=== PATIENT | female | born 1990 | race Caucasian/White ===

== ENCOUNTER 2017-08-07 10:59 | Inpatient (IN) | payer BC ==
[2017-08-07] MEDS ORDERED: Ondansetron 4 MG/2 ML SDV IV PRN (12:26)
[2017-08-07] MEDS ORDERED: Sodium Chloride 0.9% 10 ML Syringe FLUSH PRN (12:26)
[2017-08-07] MEDS ORDERED: Calcium Carbonate 500 MG Tab.Chew PO PRN (12:26)
[2017-08-07] MEDS ORDERED: fentaNYL 100 MCG/2 ML SDV IVPUSH PRN (12:26)
[2017-08-07] MEDS ORDERED: Lactated Ringers 1,000 ML IV ONE (12:29)
--- NOTE | 2017-08-07 14:52 | PCM.LDHP ---
L&D History of Present Illness - General Date of Service: 08/07/17 Admit Problem/Dx: Patient Status Order with Admit Dx/Problem 08/07/17 11:46 Admission Status [Patient Status] [ADT] Routine 08/07/17 12:26 Patient Status [ADT] Routine Admission Diagnosis/Problem Admission Diagnosis/Problem Labor without complication Source of Information: Patient History Limitations: Reports: No Limitations - Related Data Allergies/Adverse Reactions: Allergies Allergy/AdvReac Type Severity Reaction Status Date / Time No Known Allergies Allergy Verified 08/07/17 11:45 Past Medical History : 1 Para: 0 Other OB/BYN History: VÍCTOR-08/09/2017 H&P Review of Systems - Review of Systems: Review Of Systems: See Below General: Reports: No Symptoms HEENT: Reports: No Symptoms Pulmonary: Reports: No Symptoms Cardiovascular: Reports: No Symptoms Gastrointestinal: Reports: No Symptoms Genitourinary: Reports: No Symptoms Musculoskeletal: Reports: No Symptoms Skin: Reports: No Symptoms Psychiatric: Reports: No Symptoms Neurological: Reports: No Symptoms Hematologic/Lymphatic: Reports: No Symptoms Immunologic: Reports: No Symptoms L&D Exam - Exam Exam: See Below - Vital Signs Weight: 98.883 kg - Samuel Score Samuel Score Cervix Position: Anterior Samuel Score Consistency: Soft Samuel Score Effacement: >80% Samuel Score Dilation: 3-4 cm Samuel Score 's Station: -2 Samuel Score Total: 10 - Exam General: Alert, Oriented HEENT: PERRLA, Conjunctiva Clear, EACs Clear, EOMI, Hearing Intact, Mucosa Moist & [place], Nares Patent, Normal Nasal Septum, Posterior Pharynx Clear, TMs Clear Neck: Supple, Trachea Midline Lungs: Clear to Auscultation, Normal Respiratory Effort Cardiovascular: Regular Rate, Regular Rhythm GI/Abdominal Exam: Normal Bowel Sounds, Soft, Non-Tender, No Organomegaly, No Distention, No Abnormal Bruit, No Mass, Pelvis Stable Rectal Exam: Normal Exam, Normal Rectal Tone Genitourinary: Normal external exam, Normal bimanual exam, Normal speculum exam Back Exam: Normal Inspection, Full Range of Motion Extremities: Normal Inspection, Normal Range of Motion, Non-Tender, No Pedal Edema, Normal Capillary Refill Skin: Warm, Dry, Intact Neurological: Cranial Nerves Intact, Reflexes Equal Bilateral Psychiatric: Alert, Normal Affect, Normal Mood - Patient Data Lab Results Last 24 hrs: Laboratory Results - last 24 hr 08/07/17 08/07/17 08/07/17 Range/Units 11:31 12:34 14:00 WBC 13.8 H (4.5-11.0) K/uL RBC 3.97 (3.30-5.50) M/uL Hgb 12.5 (12.0-15.0) g/dL Hct 37.4 (36.0-48.0) % MCV 94 (80-98) fL MCH 32 H (27-31) pg MCHC 33 (32-36) % Plt Count 158 (150-400) K/uL Urine Color Yellow Urine Appearance Clear Urine pH 8.0 (4.5-8.0) Ur Specific [place] 1.015 (1.008-1.030) Urine Protein Negative (NEGATIVE) mg/dL Urine Glucose (UA) Normal (NEGATIVE) mg/dL Urine Ketones Negative (NEGATIVE) mg/dL Urine Occult Blood Negative (NEGATIVE) Urine Nitrite Negative (NEGATIVE) Urine Bilirubin Negative (NEGATIVE) Urine Urobilinogen Normal (NORMAL) mg/dL Ur Leukocyte Esterase Negative (NEGATIVE) Urine RBC Not seen (0-5) Urine WBC 0-5 (0-5) Ur Epithelial Cells Rare Amorphous Sediment Not seen Urine Bacteria Not seen Urine Mucus Not seen Urine Opiates Screen Negative (NEGATIVE) Ur Oxycodone Screen Negative (NEGATIVE) Urine Methadone Screen Negative (NEGATIVE) Ur Propoxyphene Screen Negative (NEGATIVE) Ur Barbiturates Screen Negative (NEGATIVE) Ur Tricyclics Screen Negative (NEGATIVE) Ur Phencyclidine Scrn Negative (NEGATIVE) Ur Amphetamine Screen Negative (NEGATIVE) U Methamphetamines Scrn Negative (NEGATIVE) Urine MDMA Screen Negative (NEGATIVE) U Benzodiazepines Scrn Negative (NEGATIVE) U Cocaine Metab Screen Negative (NEGATIVE) U Marijuana (THC) Screen Negative (NEGATIVE) Result Diagrams: 08/07/17 12:34 - Problem List (1) SNOMED Code(s): 90819511 ICD Code: Z34.90 - ENCNTR FOR SUPRVSN OF NORMAL , UNSP, UNSP TRIMESTER Status: Acute Current Visit: Yes Qualifiers: Weeks of gestation: 39 weeks Qualified Code(s): Z3A.39 - 39 weeks gestation of (2) Active labor at term SNOMED Code(s): 67331182 ICD Code: SJV1036 - Status: Acute Current Visit: Yes Problem List Initiated/Reviewed/Updated: Yes Orders Last 24hrs: Active Orders 24 hr Category Date Time Status Admission Status [Patient Status] [ADT] Routine ADT 08/07/17 11:46 Active Patient Status [ADT] Routine ADT 08/07/17 12:26 Active Communication Order [RC] ASDIRECTED Care 08/07/17 12:26 Active Heart Tones [RC] PER UNIT ROUTINE Care 08/07/17 12:26 Active Local Anesthetic Infusion Pump [RC] ASDIRECTED Care 08/07/17 12:29 Active Notify Provider Vital Signs [RC] PRN Care 08/07/17 12:26 Active Notify Provider [RC] PRN Care 08/07/17 12:26 Active OB Check [OM.PC] Click to Edit Care 08/07/17 11:10 Ordered PCEA Epidural [RC] ASDIRECTED Care 08/07/17 12:29 Active Up ad Kristin [RC] ASDIRECTED Care 08/07/17 12:26 Active Vital Signs [RC] PER UNIT ROUTINE Care 08/07/17 12:26 Active Regular Diet [DIET] Diet 08/07/17 Lunch Active Calcium Carbonate [Tums] Med 08/07/17 12:26 Active 1,000 mg PO Q2H PRN Ondansetron [Zofran] Med 08/07/17 12:26 Active 4 mg IV Q4H PRN Sodium Chloride 0.9% [Saline Flush] Med 08/07/17 12:26 Active 10 ml FLUSH ASDIRECTED PRN fentaNYL [Sublimaze] Med 08/07/17 12:26 Active 100 mcg IVPUSH Q1H PRN Epidural Catheter Management [OM.PC] Routine Oth 08/07/17 12:29 Ordered Saline Lock Insert [OM.PC] Routine Oth 08/07/17 12:26 Ordered Resuscitation Status Routine Resus Stat 08/07/17 12:26 Ordered Medication Orders Calcium Carbonate/Glycine (Tums) 1,000 mg PO Q2H PRN PRN Reason: Indigestion Fentanyl (Sublimaze) 100 mcg IVPUSH Q1H PRN PRN Reason: Pain (moderate 4-6) Ondansetron HCl (Zofran) 4 mg IV Q4H PRN PRN Reason: Nausea/Vomiting Sodium Chloride (Saline Flush) 10 ml FLUSH ASDIRECTED PRN PRN Reason: Keep Vein Open Assessment/Plan Comment:: 08/07/2017 27 yo presents at 39 5/7 gestational weeks in active labor SVE-3-4/75/-2 Contractions regular FHTs category one Plan- Admit for active labor Monitor contractions Monitor FHTs IV saline lock Pain management per patient request Labs as needed Plan and anticipate a vaginal delivery
--- NOTE | 2017-08-07 14:59 | PCM.PNLD ---
Labor Progress Note - VS & Meds Active Medications: Current Medications Calcium Carbonate/Glycine (Tums) 1,000 mg PO Q2H PRN PRN Reason: Indigestion Fentanyl (Sublimaze) 100 mcg IVPUSH Q1H PRN PRN Reason: Pain (moderate 4-6) Ondansetron HCl (Zofran) 4 mg IV Q4H PRN PRN Reason: Nausea/Vomiting Sodium Chloride (Saline Flush) 10 ml FLUSH ASDIRECTED PRN PRN Reason: Keep Vein Open Discontinued Medications Lactated Ringer's (Ringers, Lactated) 1,000 mls @ 999 mls/hr IV .BOLUS ONE Stop: 08/07/17 13:29 Last Admin: 08/07/17 14:19 Dose: 999 mls/hr - Uterine Contractions Contraction Intensity: Moderate to Strong - Monitoring Heart Rate (FHR) Variability: Moderate (6-25 bmp) - Vaginal Exam Dilation (cm): 5 Effacement (Percent): 100 Station: -1 Cervical Position: Anterior - Labor Progress (Free Text) Labor Progress: Patient progressing in labor SVE-5/100/-1 Bulgy bag of mohamud Contractions regular FHTs category one Plan- Continue to monitor labor Epidural as patient desires Continue to monitor FHTs Plan and anticipate a vaginal delivery
[2017-08-07] MEDS ORDERED: fentaNYL 100 MCG/2 ML SDV ONE (15:23)
[2017-08-07] MEDS ORDERED: Ropivacaine 100 ML ONE (15:24)
[2017-08-07] MEDS ORDERED: ePHEDrine 50 MG/ML SDV ONE (15:30)
--- NOTE | 2017-08-07 20:02 | ANES ---
DATE OF SERVICE: 08/07/2017 PROCEDURE NOTE INDICATIONS: This 27-year-old lady is in labor. She is dilated to approximately to 5 at this time and they have asked that a labor epidural be placed. I discussed the risks and benefits of the procedure with the patient. She has understanding of these and has signed an informed consent. TECHNIQUE: The patient was placed in a sitting position on the edge of the bed. Her back was prepped with Betadine x3. A 2 mm skin wheal of 1% Xylocaine was injected at approximately L3-L4 and another 2 to 3 mL into the deeper tissue. A 17-gauge Tuohy needle was placed in the epidural space at this level using a loss of resistance technique. I was unable to aspirate blood, fluid, or air from the epidural needle, and proceeded to give her a bolus of 6 mL which included 5 mL of 1.5% Xylocaine with epinephrine and 2 mL of preservative-free fentanyl 100 mcg for a total of 7 mL. An epidural catheter was then threaded 3 to 4 cm into the epidural space and the needle was removed. The catheter was brought up over her right shoulder. She was placed on a continuous infusion of 0.2% ropivacaine at 12 mL per hour. This will be titrated p.r.n. pain. All of this was reviewed with the nurse in attendance. The patient tolerated the procedure well. Currently, her vital signs are stable. Her color is pink. She is alert, oriented, and shows no signs of complications from the procedure. They will contact the Anesthesia Services if further help is needed. NAME OF PROCEDURE: Insertion of labor epidural. Arun Knapp CRNA /[id number]
--- NOTE | 2017-08-07 20:53 | PCM.PNLD ---
Labor Progress Note - VS & Meds Vital Signs: Last Vital Signs Temp 36.9 C 08/07/17 19:00 Pulse 79 08/07/17 19:00 Resp 16 08/07/17 19:00 BP 129/77 08/07/17 11:30 Pulse Ox 93 L 08/07/17 19:00 Active Medications: Current Medications Calcium Carbonate/Glycine (Tums) 1,000 mg PO Q2H PRN PRN Reason: Indigestion Fentanyl (Sublimaze) 100 mcg IVPUSH Q1H PRN PRN Reason: Pain (moderate 4-6) Ondansetron HCl (Zofran) 4 mg IV Q4H PRN PRN Reason: Nausea/Vomiting Sodium Chloride (Saline Flush) 10 ml FLUSH ASDIRECTED PRN PRN Reason: Keep Vein Open Discontinued Medications Ephedrine Sulfate (Ephedrine Sulfate) Confirm Administered Dose 50 mg .ROUTE .STK-MED ONE Stop: 08/07/17 15:31 Fentanyl (Sublimaze) Confirm Administered Dose 100 mcg .ROUTE .STK-MED ONE Stop: 08/07/17 15:24 Lactated Ringer's (Ringers, Lactated) 1,000 mls @ 999 mls/hr IV .BOLUS ONE Stop: 08/07/17 13:29 Last Admin: 08/07/17 14:19 Dose: 999 mls/hr Ropivacaine (Naropin 0.2%) Confirm Administered Dose 100 mls @ as directed .ROUTE .STK-MED ONE Stop: 08/07/17 15:25 Oxytocin/Sodium Chloride (Pitocin In Ns 20 Units/1,000 Ml) 20 unit in 1,000 mls @ 2,997 mls/hr IV ONETIME ONE; 999 MUNITS/MIN PRN Reason: Protocol Stop: 08/07/17 15:47 Oxytocin/Sodium Chloride (Pitocin In Ns 20 Units/1,000 Ml) Confirm Administered Dose 20 unit in 1,000 mls @ as directed .ROUTE .STK-MED ONE Stop: 08/07/17 15:32 - Uterine Contractions Uterine Monitoring Mode: External [place] Contraction Frequency (min): 1.5-3 Contraction Duration (sec): 70-80 Contraction Intensity: Moderate Uterine Resting Tone: Soft - Monitoring Monitor Mode: External Ultrasound Heart Rate (FHR) Variability: Moderate (6-25 bmp) Accelerations: Present, 15x15 Strip Review: Category I - Vaginal Exam Dilation (cm): RIM Effacement (Percent): 100 Station: -1 Cervical Position: Anterior Sterile Vaginal Exam Performed By: Sonal Avendaño - Labor Progress (Free Text) Labor Progress: 08/07/2017 Patient progressing well in active labor SVE-RIM/100/-1 AROM clear fluid FHTs category one Contractions regular Pain well managed with epidural Plan- Continue to monitor contractions Continue to monitor FHTs Plan on beginning pushing after some laboring down Plan and anticipate a vaginal delivery
[2017-08-07] MEDS ORDERED: Witch Hazel Medicated Pads 100/Jar TOP PRN (22:27)
[2017-08-07] MEDS ORDERED: Acetaminophen 325 MG Tab PO PRN (22:27)
[2017-08-07] MEDS ORDERED: Ibuprofen 200 MG Tab, 24 Tab Bulk Bottle PO PRN (22:27)
[2017-08-07] MEDS ORDERED: Lanolin 100% Cream 40 GM Tube TOP PRN (22:27)
[2017-08-07] MEDS ORDERED: Ibuprofen 600 MG Tab PO PRN (22:27)
[2017-08-07] MEDS ORDERED: Acetaminophen/HYDROcodone 325-5 MG Tab PO PRN (22:27)
[2017-08-07] MEDS ORDERED: Acetaminophen 325 MG Tab, 50 Tab Bulk Bottle PO PRN (22:27)
[2017-08-07] MEDS ORDERED: Docusate Sodium 100 MG Cap PO PRN (22:27)
--- NOTE | 2017-08-07 23:32 | PCM.DEL ---
L & D Note - General Info Date of Service: 08/07/17 Mother's Due Date: 08/09/17 - Delivery Note Labor: Spontaneous Delivery Outcome: Livebirth Infant Delivery Method: Spontaneous Vaginal Delivery-Single Infant Delivery Mode: Vacuum Extraction Presentation: Vertex Nuchal Cord: None Anesthesia Type: Epidural Episiotomy Type: None Laceration: None Placenta: Intact, Spontaneous Estimated Blood Loss: 350 Resuscitation Needed: No Bruner: Bulb Syringe, Stimulated, Warmed, [place] Used Score 1 min: 9 Score 5 min: 9 Score 10 min: 9 Post Delivery Events: Shoulder Dystocia Second Stage Interventions: Reports: Pushing Effectively, Pushing, McRobert's Position Delivery Comments (Free Text/Narrative):: 08/07/2017 27 yo at 39 5/7 gestational weeks delivered a viable male infant on 2016 at 2147 with vacuum assist for compromise, delivered in MICA position over an intact perineum. APGARS-9/9/9, Weight-7lbs 12oz, Length- 20.2inches, Infant placed on blanket on mothers abdomen, cord double clamped and cut by provider, infant bulb suctioned, stimulated, warmed and began to pink and cry. Did bring to warmer for initial assessment due to vacuum deliver. Infant did well so return to mother and skin to skin established. Placenta spontaneous intact, three vessel cord, EBL-350ml. No lacerations noted of vagina, perineum, rectum, or cervix. now skin to skin with mother and both stable in labor and delivery room. Vacuum Extractor Progress Note - Alternative Labor Strategies Considered Alternative Labor Strategies Considered:: Reports: Yes Strategies Considered:: Reports: Contraction Intensity Adequate, Position Changes Used to Facilitate Rotation & Descent, Empty Bladder, Rest Indications Considered:: Reports: Yes Indications:: Reports: Suspicion of Immediate or Potential Compromise Time Out:: Reports: Yes - Patient Prepared Patient Prepared:: Reports: Yes Informed Consent:: Reports: Yes Risks: Reports: Yes Risks Include:: Reports: Laceration, Shoulder Dystocia, Maternal Injury Anesthesia/Analgesia Adequate:: Reports: Yes - Probability of Success High Probability of Success:: Reports: Yes Weight Estimated:: Reports: AGA Patient Diabetic:: Reports: No Pelvis Adequate:: Reports: Yes Asynclitic:: Reports: No - Application Time Maximum Application Time & Number of Pop-Offs Predetermined:: Reports: Yes Vacuum Extraction: Successful - Exit Strategy Exit strategy available:: Reports: Yes and resuscitation teams readily available:: Reports: Yes - General Info Date of Service: 08/07/17 Admission Dx/Problem (Free Text): Patient Status Order with Admit Dx/Problem 08/07/17 11:46 Admission Status [Patient Status] [ADT] Routine 08/07/17 12:26 Patient Status [ADT] Routine Admission Diagnosis/Problem Admission Diagnosis/Problem Labor without complication Functional Status: Reports: Pain Controlled - Review of Systems General: Reports: No Symptoms HEENT: Reports: No Symptoms Pulmonary: Reports: No Symptoms Cardiovascular: Reports: No Symptoms Gastrointestinal: Reports: No Symptoms Genitourinary: Reports: No Symptoms Musculoskeletal: Reports: No Symptoms Skin: Reports: No Symptoms Neurological: Reports: No Symptoms Psychiatric: Reports: No Symptoms - Patient Data Vitals - Most Recent: Last Vital Signs Temp 36.9 C 08/07/17 21:50 Pulse 91 08/07/17 23:00 Resp 16 08/07/17 23:00 BP 113/74 08/07/17 23:00 Pulse Ox 97 08/07/17 23:00 Weight - Most Recent: 98.883 kg Lab Results Last 24 Hours: Laboratory Results - last 24 hr 08/07/17 08/07/17 08/07/17 Range/Units 11:31 12:34 14:00 WBC 13.8 H (4.5-11.0) K/uL RBC 3.97 (3.30-5.50) M/uL Hgb 12.5 (12.0-15.0) g/dL Hct 37.4 (36.0-48.0) % MCV 94 (80-98) fL MCH 32 H (27-31) pg MCHC 33 (32-36) % Plt Count 158 (150-400) K/uL Urine Color Yellow Urine Appearance Clear Urine pH 8.0 (4.5-8.0) Ur Specific [place] 1.015 (1.008-1.030) Urine Protein Negative (NEGATIVE) mg/dL Urine Glucose (UA) Normal (NEGATIVE) mg/dL Urine Ketones Negative (NEGATIVE) mg/dL Urine Occult Blood Negative (NEGATIVE) Urine Nitrite Negative (NEGATIVE) Urine Bilirubin Negative (NEGATIVE) Urine Urobilinogen Normal (NORMAL) mg/dL Ur Leukocyte Esterase Negative (NEGATIVE) Urine RBC Not seen (0-5) Urine WBC 0-5 (0-5) Ur Epithelial Cells Rare Amorphous Sediment Not seen Urine Bacteria Not seen Urine Mucus Not seen Urine Opiates Screen Negative (NEGATIVE) Ur Oxycodone Screen Negative (NEGATIVE) Urine Methadone Screen Negative (NEGATIVE) Ur Propoxyphene Screen Negative (NEGATIVE) Ur Barbiturates Screen Negative (NEGATIVE) Ur Tricyclics Screen Negative (NEGATIVE) Ur Phencyclidine Scrn Negative (NEGATIVE) Ur Amphetamine Screen Negative (NEGATIVE) U Methamphetamines Scrn Negative (NEGATIVE) Urine MDMA Screen Negative (NEGATIVE) U Benzodiazepines Scrn Negative (NEGATIVE) U Cocaine Metab Screen Negative (NEGATIVE) U Marijuana (THC) Screen Negative (NEGATIVE) Med Orders - Current: Current Medications Acetaminophen (Tylenol Bulk Bottle) 325 mg PO Q4H PRN PRN Reason: Pain Acetaminophen (Tylenol) 650 mg PO Q4H PRN PRN Reason: mild pain or fever Hydrocodone Bitart/Acetaminophen (Ursa 325-5 Mg) 1 tab PO Q4H PRN PRN Reason: Pain (moderate 4-6) Calcium Carbonate/Glycine (Tums) 1,000 mg PO Q2H PRN PRN Reason: Indigestion Docusate Sodium (Colace) 100 mg PO BID PRN PRN Reason: Constipation Emollient Ointment (Lansinoh Hpa) 1 gm TOP ASDIRECTED PRN PRN Reason: Sore Nipples Fentanyl (Sublimaze) 100 mcg IVPUSH Q1H PRN PRN Reason: Pain (moderate 4-6) Ibuprofen (Motrin) 600 mg PO Q6H PRN PRN Reason: mild pain or fever Ondansetron HCl (Zofran) 4 mg IV Q4H PRN PRN Reason: Nausea/Vomiting Sodium Chloride (Saline Flush) 10 ml FLUSH ASDIRECTED PRN PRN Reason: Keep Vein Open Witch Nel (Tucks) 1 pad TOP ASDIRECTED PRN PRN Reason: Hemorrhoids Discontinued Medications Ephedrine Sulfate (Ephedrine Sulfate) Confirm Administered Dose 50 mg .ROUTE .STK-MED ONE Stop: 08/07/17 15:31 Last Admin: 08/07/17 21:12 Dose: Not Given Fentanyl (Sublimaze) Confirm Administered Dose 100 mcg .ROUTE .STK-MED ONE Stop: 08/07/17 15:24 Lactated Ringer's (Ringers, Lactated) 1,000 mls @ 999 mls/hr IV .BOLUS ONE Stop: 08/07/17 13:29 Last Admin: 08/07/17 14:19 Dose: 999 mls/hr Ropivacaine (Naropin 0.2%) Confirm Administered Dose 100 mls @ as directed .ROUTE .STK-MED ONE Stop: 08/07/17 15:25 Oxytocin/Sodium Chloride (Pitocin In Ns 20 Units/1,000 Ml) 20 unit in 1,000 mls @ 2,997 mls/hr IV ONETIME ONE; 999 MUNITS/MIN PRN Reason: Protocol Stop: 08/07/17 15:47 Last Admin: 08/07/17 21:48 Dose: 999 munits/min, 2,997 mls/hr Oxytocin/Sodium Chloride (Pitocin In Ns 20 Units/1,000 Ml) Confirm Administered Dose 20 unit in 1,000 mls @ as directed .ROUTE .STK-MED ONE Stop: 08/07/17 15:32 Last Admin: 08/07/17 21:13 Dose: Not Given Ibuprofen (Motrin Bulk Bottle) 600 mg PO Q6H PRN PRN Reason: Pain - Exam General: Alert, Oriented HEENT: Pupils Equal, Pupils Reactive, EOMI, Mucous Membr. Moist/[place] Neck: Supple Lungs: Clear to Auscultation, Normal Respiratory Effort Cardiovascular: Regular Rate, Regular Rhythm GI/Abdominal Exam: Normal Bowel Sounds, Soft, Non-Tender, No Organomegaly, No Distention, No Abnormal Bruit, No Mass, Pelvis Stable (Female) Exam: Normal External Exam, Normal Speculum Exam, Normal Bimanual Exam, Enlarged Uterus, Vaginal Bleeding Back Exam: Normal Inspection, Full Range of Motion Extremities: Normal Inspection, Normal Range of Motion, Non-Tender, No Pedal Edema, Normal Capillary Refill Skin: Warm, Dry, Intact Wound/Incisions: Healing Well Neurological: No New Focal Deficit Psy/Mental Status: Alert, Normal Affect, Normal Mood - Problem List & Annotations (1) SNOMED Code(s): 19275303 Code(s): Z34.90 - ENCNTR FOR SUPRVSN OF NORMAL , UNSP, UNSP TRIMESTER Status: Acute Current Visit: Yes Qualifiers: Weeks of gestation: 39 weeks Qualified Code(s): Z3A.39 - 39 weeks gestation of (2) Active labor at term SNOMED Code(s): 27148979 Code(s): RQP2394 - Status: Acute Current Visit: Yes (3) Vacuum extractor delivery, delivered SNOMED Code(s): 040045255 Code(s): O66.5 - ATTEMPTED APPLICATION OF VACUUM EXTRACTOR AND FORCEPS Status: Acute Current Visit: Yes - Problem List Review Problem List Initiated/Reviewed/Updated: Yes - My Orders Last 24 Hours: My Active Orders 08/07/17 11:10 OB Check [OM.PC] Click to Edit 08/07/17 11:46 Admission Status [Patient Status] [ADT] Routine 08/07/17 12:26 Patient Status [ADT] Routine Notify Provider Vital Signs [RC] PRN Notify Provider [RC] PRN Up ad Kristin [RC] ASDIRECTED Calcium Carbonate [Tums] 1,000 mg PO Q2H PRN Ondansetron [Zofran] 4 mg IV Q4H PRN Sodium Chloride 0.9% [Saline Flush] 10 ml FLUSH ASDIRECTED PRN fentaNYL [Sublimaze] 100 mcg IVPUSH Q1H PRN Saline Lock Insert [OM.PC] Routine Resuscitation Status Routine 08/07/17 12:29 Epidural Catheter Management [OM.PC] Routine 08/07/17 22:27 May Shower [RC] ASDIRECTED Acetaminophen [Tylenol Bulk Bottle] 325 mg PO Q4H PRN Acetaminophen [Tylenol] 650 mg PO Q4H PRN Acetaminophen/HYDROcodone [Ursa 325-5 MG] 1 tab PO Q4H PRN Docusate Sodium [Colace] 100 mg PO BID PRN Ibuprofen [Motrin] 600 mg PO Q6H PRN Lanolin [Lansinoh HPA] 1 gm TOP ASDIRECTED PRN Witch Nel [Tucks] 1 pad TOP ASDIRECTED PRN Assess Lochia [WOMSER] Per Unit Routine Assess Uterine Involution [WOMSER] Per Unit Routine 08/07/17 22:29 Patient Status [ADT] Routine Vital Signs [RC] PFP 08/07/17 22:30 Perineal Care [OM.PC] Per Unit Routine 08/07/17 Lunch Regular Diet [DIET] 08/08/17 06:00 CBC WITH AUTO DIFF [HEME] Routine - Assessment Assessment:: 08/07/2017 27 yo G1 now P1 at 39 5/7 gestational weeks with vacuum assist without complications Labs-B positive, GBS negative, HIV negative, Hep B negative, Rubella Immune, RPR nonreactive - Plan Plan:: 08/07/2017 27 yo presents at 39 5/7 gestational weeks in active labor SVE-3-4/75/-2 Contractions regular FHTs category one Plan- Admit for active labor Monitor contractions Monitor FHTs IV saline lock Pain management per patient request Labs as needed Plan and anticipate a vaginal delivery 08/07/2017 Routine Cares Support and encourage Monitor Fundus and bleeding Plan discharge in 24-48 hours
[2017-08-08] MEDS ORDERED: Ibuprofen 200 MG Tab, 24 Tab Bulk Bottle PO PRN (05:04)
[2017-08-08] MEDS ORDERED: Acetaminophen 325 MG Tab, 50 Tab Bulk Bottle PO PRN (07:30)
--- NOTE | 2017-08-08 07:49 | PCM.PNPP ---
- General Info Date of Service: 08/08/17 Admission Dx/Problem (Free Text): Patient Status Order with Admit Dx/Problem 08/07/17 11:46 Admission Status [Patient Status] [ADT] Routine 08/07/17 12:26 Patient Status [ADT] Routine Admission Diagnosis/Problem Admission Diagnosis/Problem Labor without complication Functional Status: Reports: Pain Controlled - Review of Systems General: Reports: No Symptoms HEENT: Reports: No Symptoms Pulmonary: Reports: No Symptoms Cardiovascular: Reports: No Symptoms Gastrointestinal: Reports: No Symptoms Genitourinary: Reports: No Symptoms Musculoskeletal: Reports: No Symptoms Skin: Reports: No Symptoms Neurological: Reports: No Symptoms Psychiatric: Reports: No Symptoms - General Info Date of Service: 08/08/17 - Patient Data Vital Signs - Most Recent: Last Vital Signs Temp 36.9 C 08/08/17 01:00 Pulse 67 08/08/17 02:00 Resp 16 08/08/17 02:00 BP 108/62 08/08/17 02:00 Pulse Ox 97 08/08/17 01:00 Weight - Most Recent: 98.883 kg Lab Results - Last 24 Hours: Laboratory Results - last 24 hr 08/07/17 08/07/17 08/07/17 Range/Units 11:31 12:34 14:00 WBC 13.8 H (4.5-11.0) K/uL RBC 3.97 (3.30-5.50) M/uL Hgb 12.5 (12.0-15.0) g/dL Hct 37.4 (36.0-48.0) % MCV 94 (80-98) fL MCH 32 H (27-31) pg MCHC 33 (32-36) % Plt Count 158 (150-400) K/uL Neut % (Auto) (36-66) % Lymph % (Auto) (24-44) % [place] % (Auto) (2-6) % Eos % (Auto) (2-4) % Baso % (Auto) (0-1) % Urine Color Yellow Urine Appearance Clear Urine pH 8.0 (4.5-8.0) Ur Specific Alexis 1.015 (1.008-1.030) Urine Protein Negative (NEGATIVE) mg/dL Urine Glucose (UA) Normal (NEGATIVE) mg/dL Urine Ketones Negative (NEGATIVE) mg/dL Urine Occult Blood Negative (NEGATIVE) Urine Nitrite Negative (NEGATIVE) Urine Bilirubin Negative (NEGATIVE) Urine Urobilinogen Normal (NORMAL) mg/dL Ur Leukocyte Esterase Negative (NEGATIVE) Urine RBC Not seen (0-5) Urine WBC 0-5 (0-5) Ur Epithelial Cells Rare Amorphous Sediment Not seen Urine Bacteria Not seen Urine Mucus Not seen Urine Opiates Screen Negative (NEGATIVE) Ur Oxycodone Screen Negative (NEGATIVE) Urine Methadone Screen Negative (NEGATIVE) Ur Propoxyphene Screen Negative (NEGATIVE) Ur Barbiturates Screen Negative (NEGATIVE) Ur Tricyclics Screen Negative (NEGATIVE) Ur Phencyclidine Scrn Negative (NEGATIVE) Ur Amphetamine Screen Negative (NEGATIVE) U Methamphetamines Scrn Negative (NEGATIVE) Urine MDMA Screen Negative (NEGATIVE) U Benzodiazepines Scrn Negative (NEGATIVE) U Cocaine Metab Screen Negative (NEGATIVE) U Marijuana (THC) Screen Negative (NEGATIVE) 08/08/17 Range/Units 06:05 WBC 15.4 H (4.5-11.0) K/uL RBC 3.58 (3.30-5.50) M/uL Hgb 11.3 L (12.0-15.0) g/dL Hct 33.9 L (36.0-48.0) % MCV 95 (80-98) fL MCH 32 H (27-31) pg MCHC 33 (32-36) % Plt Count 121 L (150-400) K/uL Neut % (Auto) 82 H (36-66) % Lymph % (Auto) 9 L (24-44) % [place] % (Auto) 9 H (2-6) % Eos % (Auto) 0 L (2-4) % Baso % (Auto) 0 (0-1) % Urine Color Urine Appearance Urine pH (4.5-8.0) Ur Specific Alexis (1.008-1.030) Urine Protein (NEGATIVE) mg/dL Urine Glucose (UA) (NEGATIVE) mg/dL Urine Ketones (NEGATIVE) mg/dL Urine Occult Blood (NEGATIVE) Urine Nitrite (NEGATIVE) Urine Bilirubin (NEGATIVE) Urine Urobilinogen (NORMAL) mg/dL Ur Leukocyte Esterase (NEGATIVE) Urine RBC (0-5) Urine WBC (0-5) Ur Epithelial Cells Amorphous Sediment Urine Bacteria Urine Mucus Urine Opiates Screen (NEGATIVE) Ur Oxycodone Screen (NEGATIVE) Urine Methadone Screen (NEGATIVE) Ur Propoxyphene Screen (NEGATIVE) Ur Barbiturates Screen (NEGATIVE) Ur Tricyclics Screen (NEGATIVE) Ur Phencyclidine Scrn (NEGATIVE) Ur Amphetamine Screen (NEGATIVE) U Methamphetamines Scrn (NEGATIVE) Urine MDMA Screen (NEGATIVE) U Benzodiazepines Scrn (NEGATIVE) U Cocaine Metab Screen (NEGATIVE) U Marijuana (THC) Screen (NEGATIVE) Med Orders - Current: Current Medications Acetaminophen (Tylenol Bulk Bottle) 325 - 650 mg PO Q4H PRN PRN Reason: Pain Hydrocodone Bitart/Acetaminophen ([place] 325-5 Mg) 1 tab PO Q4H PRN PRN Reason: Pain (moderate 4-6) Calcium Carbonate/Glycine (Tums) 1,000 mg PO Q2H PRN PRN Reason: Indigestion Docusate Sodium (Colace) 100 mg PO BID PRN PRN Reason: Constipation Emollient Ointment (Lansinoh Hpa) 1 gm TOP ASDIRECTED PRN PRN Reason: Sore Nipples Ibuprofen (Motrin Bulk Bottle) 600 mg PO Q6H PRN PRN Reason: Pain Last Admin: 08/08/17 06:51 Dose: 600 mg Ondansetron HCl (Zofran) 4 mg IV Q4H PRN PRN Reason: Nausea/Vomiting Sodium Chloride (Saline Flush) 10 ml FLUSH ASDIRECTED PRN PRN Reason: Keep Vein Open Witnavdeep Sheltonel (Tucks) 1 pad TOP ASDIRECTED PRN PRN Reason: Hemorrhoids Discontinued Medications Acetaminophen (Tylenol Bulk Bottle) 325 mg PO Q4H PRN PRN Reason: Pain Last Admin: 08/08/17 06:50 Dose: 50 tab Ephedrine Sulfate (Ephedrine Sulfate) Confirm Administered Dose 50 mg .ROUTE .STK-MED ONE Stop: 08/07/17 15:31 Last Admin: 08/07/17 21:12 Dose: Not Given Fentanyl (Sublimaze) 100 mcg IVPUSH Q1H PRN PRN Reason: Pain (moderate 4-6) Fentanyl (Sublimaze) Confirm Administered Dose 100 mcg .ROUTE .STK-MED ONE Stop: 08/07/17 15:24 Lactated Ringer's (Ringers, Lactated) 1,000 mls @ 999 mls/hr IV .BOLUS ONE Stop: 08/07/17 13:29 Last Admin: 08/07/17 14:19 Dose: 999 mls/hr Ropivacaine (Naropin 0.2%) Confirm Administered Dose 100 mls @ as directed .ROUTE .STK-MED ONE Stop: 08/07/17 15:25 Oxytocin/Sodium Chloride (Pitocin In Ns 20 Units/1,000 Ml) 20 unit in 1,000 mls @ 2,997 mls/hr IV ONETIME ONE; 999 MUNITS/MIN PRN Reason: Protocol Stop: 08/07/17 15:47 Last Admin: 08/07/17 21:48 Dose: 999 munits/min, 2,997 mls/hr Oxytocin/Sodium Chloride (Pitocin In Ns 20 Units/1,000 Ml) Confirm Administered Dose 20 unit in 1,000 mls @ as directed .ROUTE .STK-MED ONE Stop: 08/07/17 15:32 Last Admin: 08/07/17 21:13 Dose: Not Given Ibuprofen (Motrin Bulk Bottle) 600 mg PO Q6H PRN PRN Reason: Pain Ibuprofen (Motrin) 600 mg PO Q6H PRN PRN Reason: mild pain or fever - Infant Interaction Infant Disposition, : [place] in Room with Family Infant Interaction: Holding Infant Infant Feeding: Attempted ; Nursed Fair/Poor Support Person: - Recovery Exam Fundal Tone: Firm Fundal Level: At Umbilicus Fundal Placement: Midline Lochia Amount: Moderate Lochia Color: Rubra/Red Perineum Description: Intact, Minimal Bruising/Swelling Episiotomy/Laceration: None Bladder Status: Voiding - Exam General: Alert, Oriented HEENT: Pupils Equal Neck: Supple Lungs: Clear to Auscultation, Normal Respiratory Effort Cardiovascular: Regular Rate, Regular Rhythm GI/Abdominal Exam: Normal Bowel Sounds, Soft, Non-Tender, No Organomegaly, No Distention, No Abnormal Bruit, No Mass, Pelvis Stable Extremities: Normal Inspection, Normal Range of Motion, Non-Tender, No Pedal Edema, Normal Capillary Refill Skin: Warm, Dry, Intact Neurological: No New Focal Deficit Psy/Mental Status: Alert, Normal Affect, Normal Mood - Problem List & Annotations (1) SNOMED Code(s): 04147437 Code(s): Z34.90 - ENCNTR FOR SUPRVSN OF NORMAL , UNSP, UNSP TRIMESTER Status: Acute Current Visit: Yes Qualifiers: Weeks of gestation: 39 weeks Qualified Code(s): Z3A.39 - 39 weeks gestation of (2) Active labor at term SNOMED Code(s): 55982423 Code(s): YSJ6052 - Status: Acute Current Visit: Yes (3) Vacuum extractor delivery, delivered SNOMED Code(s): 200525876 Code(s): O66.5 - ATTEMPTED APPLICATION OF VACUUM EXTRACTOR AND FORCEPS Status: Acute Current Visit: Yes - Problem List Review Problem List Initiated/Reviewed/Updated: Yes - My Orders Last 24 Hours: My Active Orders 08/07/17 11:10 OB Check [OM.PC] Click to Edit 08/07/17 11:46 Admission Status [Patient Status] [ADT] Routine 08/07/17 12:26 Patient Status [ADT] Routine Notify Provider Vital Signs [RC] PRN Notify Provider [RC] PRN Up ad Kristin [RC] ASDIRECTED Calcium Carbonate [Tums] 1,000 mg PO Q2H PRN Ondansetron [Zofran] 4 mg IV Q4H PRN Sodium Chloride 0.9% [Saline Flush] 10 ml FLUSH ASDIRECTED PRN Saline Lock Insert [OM.PC] Routine Resuscitation Status Routine 08/07/17 12:29 Epidural Catheter Management [OM.PC] Routine 08/07/17 22:27 May Shower [RC] ASDIRECTED Acetaminophen/HYDROcodone [[place] 325-5 MG] 1 tab PO Q4H PRN Docusate Sodium [Colace] 100 mg PO BID PRN Lanolin [Lansinoh HPA] 1 gm TOP ASDIRECTED PRN Witch Nel [Tucks] 1 pad TOP ASDIRECTED PRN Assess Lochia [WOMSER] Per Unit Routine Assess Uterine Involution [WOMSER] Per Unit Routine 08/07/17 22:29 Patient Status [ADT] Routine Vital Signs [RC] PFP 08/07/17 22:30 Perineal Care [OM.PC] Per Unit Routine 08/07/17 Lunch Regular Diet [DIET] 08/08/17 05:04 Ibuprofen [Motrin Bulk Bottle] 600 mg PO Q6H PRN 08/08/17 07:30 Acetaminophen [Tylenol Bulk Bottle] 325 - 650 mg PO Q4H PRN - Assessment Assessment:: 08/07/2017 27 yo G1 now P1 at 39 5/7 gestational weeks with vacuum assist without complications Labs-B positive, GBS negative, HIV negative, Hep B negative, Rubella Immune, RPR nonreactive 08/08/2017 with Vacuum Assist Day One Fair Fundus firm, bleeding decreasing Voiding and Passing gas Hgb-11.3 - Plan Plan:: 08/07/2017 27 yo presents at 39 5/7 gestational weeks in active labor SVE-3-/-2 Contractions regular FHTs category one Plan- Admit for active labor Monitor contractions Monitor FHTs IV saline lock Pain management per patient request Labs as needed Plan and anticipate a vaginal delivery 08/07/2017 Routine Cares Support and encourage Monitor Fundus and bleeding Plan discharge in 24-48 hours 08/08/2017 Continue Routine Cares Continue to support and encourage Continue to monitor fundus and bleeding Plan discharge tomorrow
--- NOTE | 2017-08-09 09:27 | PCM.PNPP ---
- General Info Date of Service: 08/09/17 Admission Dx/Problem (Free Text): Patient Status Order with Admit Dx/Problem 08/07/17 11:46 Admission Status [Patient Status] [ADT] Routine 08/07/17 12:26 Patient Status [ADT] Routine Admission Diagnosis/Problem Admission Diagnosis/Problem Labor without complication Functional Status: Reports: Pain Controlled - Review of Systems General: Reports: No Symptoms HEENT: Reports: No Symptoms Pulmonary: Reports: No Symptoms Cardiovascular: Reports: No Symptoms Gastrointestinal: Reports: No Symptoms Genitourinary: Reports: No Symptoms Musculoskeletal: Reports: No Symptoms Skin: Reports: No Symptoms Neurological: Reports: No Symptoms Psychiatric: Reports: No Symptoms - General Info Date of Service: 08/09/17 - Patient Data Vital Signs - Most Recent: Last Vital Signs Temp 35.7 C 08/09/17 07:17 Pulse 54 L 08/09/17 07:17 Resp 18 08/09/17 07:17 BP 118/77 08/09/17 07:17 Pulse Ox 98 08/09/17 07:17 Weight - Most Recent: 98.883 kg Med Orders - Current: Current Medications Acetaminophen (Tylenol Bulk Bottle) 325 - 650 mg PO Q4H PRN PRN Reason: Pain Hydrocodone Bitart/Acetaminophen ([place] 325-5 Mg) 1 tab PO Q4H PRN PRN Reason: Pain (moderate 4-6) Calcium Carbonate/Glycine (Tums) 1,000 mg PO Q2H PRN PRN Reason: Indigestion Docusate Sodium (Colace) 100 mg PO BID PRN PRN Reason: Constipation Last Admin: 08/09/17 09:24 Dose: 100 mg Emollient Ointment (Lansinoh Hpa) 1 gm TOP ASDIRECTED PRN PRN Reason: Sore Nipples Ibuprofen (Motrin Bulk Bottle) 600 mg PO Q6H PRN PRN Reason: Pain Last Admin: 08/08/17 06:51 Dose: 600 mg Ondansetron HCl (Zofran) 4 mg IV Q4H PRN PRN Reason: Nausea/Vomiting Sodium Chloride (Saline Flush) 10 ml FLUSH ASDIRECTED PRN PRN Reason: Keep Vein Open Witch Nel (Tucks) 1 pad TOP ASDIRECTED PRN PRN Reason: Hemorrhoids Discontinued Medications Acetaminophen (Tylenol Bulk Bottle) 325 mg PO Q4H PRN PRN Reason: Pain Last Admin: 08/08/17 06:50 Dose: 50 tab Ephedrine Sulfate (Ephedrine Sulfate) Confirm Administered Dose 50 mg .ROUTE .STK-MED ONE Stop: 08/07/17 15:31 Last Admin: 08/07/17 21:12 Dose: Not Given Fentanyl (Sublimaze) 100 mcg IVPUSH Q1H PRN PRN Reason: Pain (moderate 4-6) Fentanyl (Sublimaze) Confirm Administered Dose 100 mcg .ROUTE .STK-MED ONE Stop: 08/07/17 15:24 Lactated Ringer's (Ringers, Lactated) 1,000 mls @ 999 mls/hr IV .BOLUS ONE Stop: 08/07/17 13:29 Last Admin: 08/07/17 14:19 Dose: 999 mls/hr Ropivacaine (Naropin 0.2%) Confirm Administered Dose 100 mls @ as directed .ROUTE .STK-MED ONE Stop: 08/07/17 15:25 Oxytocin/Sodium Chloride (Pitocin In Ns 20 Units/1,000 Ml) 20 unit in 1,000 mls @ 2,997 mls/hr IV ONETIME ONE; 999 MUNITS/MIN PRN Reason: Protocol Stop: 08/07/17 15:47 Last Admin: 08/07/17 21:48 Dose: 999 munits/min, 2,997 mls/hr Oxytocin/Sodium Chloride (Pitocin In Ns 20 Units/1,000 Ml) Confirm Administered Dose 20 unit in 1,000 mls @ as directed .ROUTE .STK-MED ONE Stop: 08/07/17 15:32 Last Admin: 08/07/17 21:13 Dose: Not Given Ibuprofen (Motrin Bulk Bottle) 600 mg PO Q6H PRN PRN Reason: Pain Ibuprofen (Motrin) 600 mg PO Q6H PRN PRN Reason: mild pain or fever - Infant Interaction Disposition, : in Room with Family Interaction: Holding Infant Feeding: Attempted ; Nursed Fair/Poor Support Person: - Recovery Exam Fundal Tone: Firm Fundal Level: 1 Fingerbreadths Below Umbilicus Fundal Placement: Midline Lochia Amount: Small Lochia Color: Rubra/Red Perineum Description: Intact, Minimal Bruising/Swelling Episiotomy/Laceration: None Bladder Status: Voiding Urinary Elimination: Voided - Exam General: Alert, Oriented HEENT: Pupils Equal Neck: Supple Lungs: Clear to Auscultation, Normal Respiratory Effort Cardiovascular: Regular Rate, Regular Rhythm GI/Abdominal Exam: Normal Bowel Sounds, Soft, Non-Tender, No Organomegaly, No Distention, No Abnormal Bruit, No Mass, Pelvis Stable Extremities: Normal Inspection, Normal Range of Motion, Non-Tender, No Pedal Edema, Normal Capillary Refill Skin: Warm, Dry, Intact Neurological: No New Focal Deficit Psy/Mental Status: Alert, Normal Affect, Normal Mood - Problem List & Annotations (1) SNOMED Code(s): 57800248 Code(s): Z34.90 - ENCNTR FOR SUPRVSN OF NORMAL , UNSP, UNSP TRIMESTER Status: Acute Current Visit: Yes Qualifiers: Weeks of gestation: 39 weeks Qualified Code(s): Z3A.39 - 39 weeks gestation of (2) Active labor at term SNOMED Code(s): 73724631 Code(s): [id number] - Status: Acute Current Visit: Yes (3) Vacuum extractor delivery, delivered SNOMED Code(s): 488337534 Code(s): O66.5 - ATTEMPTED APPLICATION OF VACUUM EXTRACTOR AND FORCEPS Status: Acute Current Visit: Yes - Problem List Review Problem List Initiated/Reviewed/Updated: Yes - Assessment Assessment:: 08/07/2017 27 yo G1 now P1 at 39 5/7 gestational weeks with vacuum assist without complications Labs-B positive, GBS negative, HIV negative, Hep B negative, Rubella Immune, RPR nonreactive 08/08/2017 with Vacuum Assist Day One Fair Fundus firm, bleeding decreasing Voiding and Passing gas Hgb-11.3 08/09/2017 with Vacuum Assist Day Two Fair Fundus firm, bleeding decreasing Voiding and passing gas Desires home today - Plan Plan:: 08/07/2017 27 yo presents at 39 5/7 gestational weeks in active labor SVE-3-/-2 Contractions regular FHTs category one Plan- Admit for active labor Monitor contractions Monitor FHTs IV saline lock Pain management per patient request Labs as needed Plan and anticipate a vaginal delivery 08/07/2017 Routine Cares Support and encourage Monitor Fundus and bleeding Plan discharge in 24-48 hours 08/08/2017 Continue Routine Cares Continue to support and encourage Continue to monitor fundus and bleeding Plan discharge tomorrow 08/09/2017 Continue Routine Cares Continue to support and encourage - to see Plan discharge tonight if goes better Plan to see me in six weeks for visit
== END 2017-08-09 13:26 | disposition home or self-care (01) | DRG 560 ==
LOC: JP.OBCHECK 10:59 → JP.OB 11:46 → OBSVTOIN 21:47 → JP.MS 08-08 00:20
PROVIDERS: ADMIT Advanced Practice Midwife; ATTEND Advanced Practice Midwife
PROC: 10D07Z6 Extraction of Products of Conception, Vacuum, Via Natural or Artificial Opening (ICD-10-PCS; principal; 2017-08-07)
PROC: 00HU33Z Insertion of Infusion Device into Spinal Canal, Percutaneous Approach (ICD-10-PCS; 2017-08-07)
DX: O77.9 Labor and delivery complicated by fetal stress, unspecified (principal); Z3A.39 39 weeks gestation of pregnancy; Z37.0 Single live birth
CPT/HCPCS: 36415; 59409; 80305; 81001; 85025; 85027; 99211; A9270-GY; J2590; J2795; J3010; J7120

== ENCOUNTER 2017-11-26 16:02 | Inpatient (IN) | payer BC ==
[2017-11-26] MEDS ORDERED: Dexamethasone 4 MG/ML SDV ONE (16:44)
[2017-11-26] MEDS ORDERED: Rocuronium 50 MG/5 ML Vial ONE (16:44)
[2017-11-26] MEDS ORDERED: fentaNYL 250 MCG/5 ML SDV ONE ×2 (16:44→17:09)
[2017-11-26] MEDS ORDERED: Propofol 200 MG/20 ML SDV ONE (16:44)
[2017-11-26] MEDS ORDERED: Neostigmine Methylsulfate 1 MG/ML 5 ML Syringe ONE (16:44)
[2017-11-26] MEDS ORDERED: Ondansetron 4 MG/2 ML SDV ONE (16:44)
[2017-11-26] MEDS: Lactated Ringers 1,000 ML IV SCH ×2 (16:45→19:53)
[2017-11-26] MEDS ORDERED: Ampicillin/Sulbactam Na 3 GM in Sodium Chloride 0.9% 100 ML IV ONE (16:45)
[2017-11-26] MEDS ORDERED: Bupivacaine 0.5% 50 ML MDV ONE (16:49)
[2017-11-26] MEDS ORDERED: Lidocaine 1% with EPINEPHrine 1:100,000 50 ML MDV ONE (16:49)
[2017-11-26] MEDS ORDERED: Ondansetron 4 MG/2 ML SDV IVPUSH PRN (17:33)
[2017-11-26] MEDS ORDERED: Docusate Sodium 100 MG Cap PO PRN (17:33)
[2017-11-26] MEDS ORDERED: Lactated Ringers 1,000 ML IV SCH (17:45)
[2017-11-26] MEDS ORDERED: Naloxone 0.4 MG/ML SDV IV PRN (18:34)
[2017-11-26] MEDS ORDERED: HYDROmorphone/Normal Saline 15 MG/30 ML PCA IV PRN (18:34)
[2017-11-27] MEDS ORDERED: Ampicillin/Sulbactam Na 3 GM in Sodium Chloride 0.9% 100 ML IV SCH (03:00)
[2017-11-27] MEDS: Lactated Ringers 1,000 ML IV SCH (04:17)
--- NOTE | 2017-11-27 07:44 | OR ---
DATE OF PROCEDURE: 11/26/2017 PREOPERATIVE DIAGNOSIS: Large right lactating breast abscess. POSTOPERATIVE DIAGNOSIS: Large right lactating breast abscess, minimum of 7 cm in diameter. PROCEDURE: Incision and drainage of large right breast abscess. SOIL SCIENCE TEACHER: Alejandro Falcon MS-3. ANESTHESIA: General endotracheal. INDICATIONS: This 27-year-old white female has a 3-1/2-month-old baby, this is her first child, and she has been . About 3 weeks ago, she noticed some tenderness in her right breast. She thought it might have been a plugged duct, and she treated this with heat, massage, and did not really get better. Last week, it became worse; so, she came in, was seen, she was started on oral antibiotics for mastitis. She followed up today with the right breast being much worse. There is significant cellulitis involving much of the breast and obvious very large abscess with fluctuance underneath it. She was taken to the operating room for incision and drainage of this large right breast abscess. I counseled her for this, including risks and alternatives, and she gave her informed consent to proceed. Unfortunately, the abscess is pointing in the upper inner quadrant of the breast. DESCRIPTION OF PROCEDURE: After adequate general endotracheal anesthesia was obtained, the right breast was prepped and draped in usual sterile fashion. An 18-gauge needle was introduced into the abscess cavity, and we aspirated some yellow purulent material, which was sent for Gram stain and culture. A semicircular incision parallel to the areolar complex was made, releasing copious quantities of purulent material. We excised some skin at this site and sent that to the laboratory. The abscess was noted to go from the upper inner quadrant underneath deep to the breast to the lower outer quadrant. This is a very large abscess, certainly larger than 7 cm in diameter. The cavity was palpated with loculations broken up, and we then irrigated the breast with saline and suctioned dry multiple times. Hemostasis was attempted with electrocautery. The incision was then packed with 1-inch iodoform gauze. It took more than 1 bottle, the second bottle was obtained, the gauze was tied together, and then the packing continued until the abscess cavity was completely filled. The excess gauze was discarded. A sterile dressing was applied. The anesthesia was reversed. She was extubated and brought to recovery room in good condition. Brendon Coronel MD /[id number]
[2017-11-27] MEDS: Ampicillin/Sulbactam Na 3 GM in Sodium Chloride 0.9% 100 ML IV SCH ×3 (09:49→21:25)
[2017-11-28] MEDS: Ampicillin/Sulbactam Na 3 GM in Sodium Chloride 0.9% 100 ML IV SCH ×2 (04:57→10:04)
--- NOTE | 2017-11-28 11:27 | PCM.SURGPN ---
- General Info Date of Service: 11/27/17 Date of Surgery/Procedure: 11/26/17 POD#: 1 Post-Op Diagnosis: Large right lactating breast abscess. Functional Status: Reports: Pain Controlled, Tolerating Diet, Ambulating, Urinating, Incentive Spirometry - Review of Systems General: Reports: No Symptoms HEENT: Reports: No Symptoms Pulmonary: Reports: No Symptoms Cardiovascular: Reports: No Symptoms Gastrointestinal: Reports: No Symptoms Genitourinary: Reports: No Symptoms Musculoskeletal: Reports: No Symptoms Skin: Reports: No Symptoms, Other (Her breast feels much better after draining the abscess.) Neurological: Reports: No Symptoms Psychiatric: Reports: No Symptoms - Patient Data Vitals - Most Recent: Last Vital Signs Temp 97 F 11/28/17 07:23 Pulse 52 L 11/28/17 07:23 Resp 16 11/28/17 07:23 BP 110/63 11/28/17 07:23 Pulse Ox 100 11/28/17 07:23 Weight - Most Recent: 177 lb 15.984 oz I&O - Last 24 Hours: Intake & Output 11/27/17 11/28/17 11/28/17 22:59 06:59 14:59 Intake Total 845 476 4809 Output Total 900 1850 Balance 40 -1750 1360 Rigoberto Results Last 24 Hrs: Microbiology 11/26/17 17:46 Gram Stain - Final Breast, Right Wound Culture - Preliminary Anaerobic Culture - Preliminary Med Orders - Current: Current Medications Docusate Sodium (Colace) 100 mg PO BID PRN PRN Reason: Constipation Hydromorphone HCl (Dilaudid Ceramic Tile Installer 15 Mg In Ns 30 Ml) 0 mg IV ASDIRECTED PRN; Protocol PRN Reason: SHIPS EQUIPMENT ENGINEER PAIN CONTROL Last Admin: 11/26/17 19:54 Dose: 15 mg Lactated Ringer's (Ringers, Lactated) 1,000 mls @ 25 mls/hr IV ASDIRECTED SKIP Last Admin: 11/27/17 15:25 Dose: 125 mls/hr Ampicillin Sodium/Sulbactam (Sodium 3 gm/ Sodium Chloride) 100 mls @ 200 mls/ hr IV Q6H SKIP Last Admin: 11/28/17 10:04 Dose: 200 mls/hr Naloxone HCl (Narcan) 0.1 mg IV ASDIRECTED PRN PRN Reason: decreased respiratory rate Ondansetron HCl (Zofran) 4 mg IVPUSH Q6H PRN PRN Reason: Nausea/Vomiting Discontinued Medications Bupivacaine HCl (Marcaine 0.5%) Confirm Administered Dose 50 ml .ROUTE .STK-MED ONE Stop: 11/26/17 16:50 Dexamethasone (Dexamethasone) Confirm Administered Dose 4 mg .ROUTE .STK-MED ONE Stop: 11/26/17 16:45 Fentanyl (Sublimaze) Confirm Administered Dose 250 mcg .ROUTE .STK-MED ONE Stop: 11/26/17 16:45 Fentanyl (Sublimaze) Confirm Administered Dose 250 mcg .ROUTE .STK-MED ONE Stop: 11/26/17 17:10 Glycopyrrolate () Confirm Administered Dose 1 mg .ROUTE .STK-MED ONE Stop: 11/26/17 16:45 Lactated Ringer's (Ringers, Lactated) 1,000 mls @ 100 mls/hr IV ASDIRECTED [facility] Last Admin: 11/27/17 04:17 Dose: 100 mls/hr Ampicillin Sodium/Sulbactam (Sodium 3 gm/ Sodium Chloride) 100 mls @ 200 mls/ hr IV ONETIME ONE Stop: 11/26/17 17:14 Last Admin: 11/26/17 16:55 Dose: 200 mls/hr Ampicillin Sodium/Sulbactam (Sodium 3 gm/ Sodium Chloride) 100 mls @ 200 mls/ hr IV Q6H [facility] Last Admin: 11/27/17 04:17 Dose: 200 mls/hr Lidocaine/Epinephrine (Xylocaine 1% With Epinephrine 1:100,000) Confirm Administered Dose 50 ml .ROUTE .STK-MED ONE Stop: 11/26/17 16:50 Neostigmine Methylsulfate (Neostigmine) Confirm Administered Dose 5 mg .ROUTE .STK-MED ONE Stop: 11/26/17 16:45 Ondansetron HCl (Zofran) Confirm Administered Dose 4 mg .ROUTE .STK-MED ONE Stop: 11/26/17 16:45 Propofol (Diprivan 20 Ml) Confirm Administered Dose 200 mg .ROUTE .STK-MED ONE Stop: 11/26/17 16:45 Rocuronium [place] (Zemuron) Confirm Administered Dose 50 mg .ROUTE .STK-MED ONE Stop: 11/26/17 16:45 - Exam Wound/Incisions: Healing Well, No Drainage, Erythema Improving General: Alert, Oriented, Cooperative, No Acute Distress Lungs: Clear to Auscultation, Normal Respiratory Effort Cardiovascular: Regular Rate, Regular Rhythm GI/Abdominal Exam: Normal Bowel Sounds Extremities: Normal Inspection Skin: Warm, Dry, Intact Neurological: No New Focal Deficit Psy/Mental Status: Alert, Normal Affect, Normal Mood - Problem List & Annotations (1) Breast abscess of female SNOMED Code(s): 92683935 Code(s): N61.1 - ABSCESS OF THE BREAST AND NIPPLE Status: Acute Current Visit: No Annotation/Comment:: Right Breast - Problem List Review Problem List Initiated/Reviewed/Updated: Yes - My Orders Last 24 Hours: Active Orders 24 hr Category Date Time Status Ready for Discharge [RC] PER UNIT ROUTINE Care 11/28/17 11:23 Ordered Wound Care [RC] Q12H Care 11/27/17 13:54 Active Medication Orders Docusate Sodium (Colace) 100 mg PO BID PRN PRN Reason: Constipation Hydromorphone HCl (Dilaudid Ceramic Tile Installer 15 Mg In Ns 30 Ml) 0 mg IV ASDIRECTED PRN; Protocol PRN Reason: SHIPS EQUIPMENT ENGINEER PAIN CONTROL Last Admin: 11/26/17 19:54 Dose: 15 mg Lactated Ringer's (Ringers, Lactated) 1,000 mls @ 25 mls/hr IV ASDIRECTED [facility] Last Admin: 11/27/17 15:25 Dose: 125 mls/hr Ampicillin Sodium/Sulbactam (Sodium 3 gm/ Sodium Chloride) 100 mls @ 200 mls/ hr IV Q6H [facility] Last Admin: 11/28/17 10:04 Dose: 200 mls/hr Admin: 11/28/17 04:57 Dose: 200 mls/hr Admin: 11/27/17 21:25 Dose: 200 mls/hr Admin: 11/27/17 16:25 Dose: 200 mls/hr Admin: 11/27/17 09:49 Dose: 200 mls/hr Naloxone HCl (Narcan) 0.1 mg IV ASDIRECTED PRN PRN Reason: decreased respiratory rate Ondansetron HCl (Zofran) 4 mg IVPUSH Q6H PRN PRN Reason: Nausea/Vomiting - Assessment Assessment (Free Text/Narrative):: Improving. - Plan Plan (Free Text/Narrative):: Start local wound care. Train her to do this. Home tomorrow.
--- NOTE | 2017-11-28 11:33 | PCM.DCSUM1 ---
Discharge Summary - Hospital Course Free Text/Narrative:: This 27 year old white female had her first child 3 1/2 months ago. She is breast feeding. Over a week ago her right breast became tender. She was seen in the clinic and started on amoxicillin. She followed up in the clinic two days ago with finding of a large breast abscess. She received IV Unasyn and was taken to the OR where a large right breast abscess was drained. Packing was removed yesterday and she is now doing local wound care. Gram stain returned gram positive cocci in clusters. Culture is pending. Her erythema is significantly improved. She is discharged at this time to home in good condition. She will see Dr. Gama in his wound care clinic next week. Brief History: See above narrative. - Discharge Data Discharge Date: 11/28/17 Discharge Disposition: Home, Self-Care 01 Condition: Good - Discharge Diagnosis/Problem(s) (1) Breast abscess of female SNOMED Code(s): 17086110 ICD Code: N61.1 - ABSCESS OF THE BREAST AND NIPPLE Status: Acute Current Visit: No Problem Details: Right Breast - Patient Summary/Data Operative Procedure(s) Performed: Incision and drainage of right breast abscess. Consults: Consultations 11/26/17 17:33 Respiratory Care Assess and Treatment [CONS] Routine Comment: Physician Instructions: 11/27/17 08:00 Consult to Archives Director [CONS] Routine Comment: Physician Instructions: To Sonal Thao CNM Reason for Consult: Follow I & D of large right breast abscess Hospital Course: See above narrative. - Patient Instructions Diet: Usual Diet as Tolerated Activity: As Tolerated Driving: May Drive Today Showering/Bathing: May Shower Wound/Incision Care: Change Dressing Daily (Wound care BID. ) Notify Provider of: Fever, Increased Pain, Swelling and Redness, Drainage, Nausea and/or Vomiting - Discharge Plan Prescriptions/Med Rec: Amoxicillin/Potassium Clav [Augmentin 875-125 Tablet] 1 each PO BID 10 Days #20 tablet Home Medications: Home Meds Amoxicillin [Amoxil] 125 mg PO BID 11/26/17 [History] Amoxicillin/Potassium Clav [Augmentin 875-125 Tablet] 1 each PO BID 10 Days #20 tablet 11/28/17 [Rx] Patient Handouts: Skin Abscess, Mastitis, [id number], Skin Abscess, Easy-to- Read, and Mastitis Referrals: Sen Gama MD [Physician] - (See him in wound clinic in [facility] on Friday , 12/02/2017.) - Discharge Summary/Plan Comment DC Time >30 min.: Yes Discharge Summary/Plan Comment: See above narrative. - Patient Data Vitals - Most Recent: Last Vital Signs Temp 97 F 11/28/17 07:23 Pulse 52 L 11/28/17 07:23 Resp 16 11/28/17 07:23 BP 110/63 11/28/17 07:23 Pulse Ox 100 11/28/17 07:23 Weight - Most Recent: 177 lb 15.984 oz I&O - Last 24 hours: Intake & Output 11/27/17 11/28/17 11/28/17 22:59 06:59 14:59 Intake Total 903 126 6157 Output Total 900 1850 Balance 40 -1750 1360 HODAN Results - Last 24 hrs: Microbiology 11/26/17 17:46 Gram Stain - Final Breast, Right Wound Culture - Preliminary Anaerobic Culture - Preliminary Med Orders - Current: Current Medications Docusate Sodium (Colace) 100 mg PO BID PRN PRN Reason: Constipation Hydromorphone HCl (Dilaudid Mar[employer] Worker 15 Mg In Ns 30 Ml) 0 mg IV ASDIRECTED PRN; Protocol PRN Reason: [employer] Last Admin: 11/26/17 19:54 Dose: 15 mg Lactated Ringer's (Ringers, Lactated) 1,000 mls @ 25 mls/hr IV ASDIRECTED [facility] Last Admin: 11/27/17 15:25 Dose: 125 mls/hr Ampicillin Sodium/Sulbactam (Sodium 3 gm/ Sodium Chloride) 100 mls @ 200 mls/ hr IV Q6H [facility] Last Admin: 11/28/17 10:04 Dose: 200 mls/hr Naloxone HCl (Narcan) 0.1 mg IV ASDIRECTED PRN PRN Reason: decreased respiratory rate Ondansetron HCl (Zofran) 4 mg IVPUSH Q6H PRN PRN Reason: Nausea/Vomiting Discontinued Medications Bupivacaine HCl (Marcaine 0.5%) Confirm Administered Dose 50 ml .ROUTE .STK-MED ONE Stop: 11/26/17 16:50 Dexamethasone (Dexamethasone) Confirm Administered Dose 4 mg .ROUTE .STK-MED ONE Stop: 11/26/17 16:45 Fentanyl (Sublimaze) Confirm Administered Dose 250 mcg .ROUTE .STK-MED ONE Stop: 11/26/17 16:45 Fentanyl (Sublimaze) Confirm Administered Dose 250 mcg .ROUTE .STK-MED ONE Stop: 11/26/17 17:10 Glycopyrrolate () Confirm Administered Dose 1 mg .ROUTE .STK-MED ONE Stop: 11/26/17 16:45 Lactated Ringer's (Ringers, Lactated) 1,000 mls @ 100 mls/hr IV ASDIRECTED [facility] Last Admin: 11/27/17 04:17 Dose: 100 mls/hr Ampicillin Sodium/Sulbactam (Sodium 3 gm/ Sodium Chloride) 100 mls @ 200 mls/ hr IV ONETIME ONE Stop: 11/26/17 17:14 Last Admin: 11/26/17 16:55 Dose: 200 mls/hr Ampicillin Sodium/Sulbactam (Sodium 3 gm/ Sodium Chloride) 100 mls @ 200 mls/ hr IV Q6H [facility] Last Admin: 11/27/17 04:17 Dose: 200 mls/hr Lidocaine/Epinephrine (Xylocaine 1% With Epinephrine 1:100,000) Confirm Administered Dose 50 ml .ROUTE .STK-MED ONE Stop: 11/26/17 16:50 Neostigmine Methylsulfate (Neostigmine) Confirm Administered Dose 5 mg .ROUTE .STK-MED ONE Stop: 11/26/17 16:45 Ondansetron HCl (Zofran) Confirm Administered Dose 4 mg .ROUTE .STK-MED ONE Stop: 11/26/17 16:45 Propofol (Diprivan 20 Ml) Confirm Administered Dose 200 mg .ROUTE .STK-MED ONE Stop: 11/26/17 16:45 Rocuronium [place] (Zemuron) Confirm Administered Dose 50 mg .ROUTE .STK-MED ONE Stop: 11/26/17 16:45 *Q Meaningful Use (DIS) - VTE *Q VTE Criteria *Q: - Stroke *Q Stroke Criteria *Q: - AMI *Q AMI Criteria *Q:
== END 2017-11-28 12:55 | disposition home or self-care (01) | DRG 952 ==
LOC: JP.SDS 16:02 → JP.MS 17:33
PROVIDERS: ADMIT Surgery; ATTEND Surgery
PROC: 0H9T0ZX Drainage of Right Breast, Open Approach, Diagnostic (ICD-10-PCS; principal; 2017-11-26)
PROC: 0H9T3ZX Drainage of Right Breast, Percutaneous Approach, Diagnostic (ICD-10-PCS; 2017-11-26)
PROC: 0HBTXZZ (ICD-10-PCS; 2017-11-26)
DX: O91.13 Abscess of breast associated with lactation (principal); B95.61 Methicillin susceptible Staphylococcus aureus infection as the cause of diseases classified elsewhere; H54.7 Unspecified visual loss
CPT/HCPCS: 36415; 81025; 85027; 87070; 87075; 87077; 87186; 87205; 88304; 94762; J0295; J1100; J1170; J2405; J2704; J3010; J7030; J7120